=== PATIENT | male | born 1970 | race Caucasian/White ===

== ENCOUNTER 2016-12-07 07:52 | Emergency (ER) | payer BC ==
--- NOTE | 2016-12-07 08:08 | UC ---
Ear Complaint HPI - HPI Summary HPI Summary: complaint of left ear pain that started on 12/07/16 now his ear feels plugged can't hear well out of left ear has been using qtips to clean out his ear denies nasal congestion sore throat, fever cough headache tried to use homepathy remedy and warm cloth with relief - History of Current Complaint Hx Obtained From: Patient <Lizzy Sánchez - Last Filed: 12/07/16 08:18> <Mattie Vasques - Last Filed: 12/07/16 11:08> - History of Current Complaint Chief Complaint: UCEar Stated Complaint: EARACHE Time Seen by Provider: 12/07/16 08:02 - Allergies/Home Medications Allergies/Adverse Reactions: Allergies Allergy/AdvReac Type Severity Reaction Status Date / Time animal hair Allergy Severe Hives Uncoded 12/07/16 07:55 Home Medications: Home Medications Ibuprofen TAB* [Advil TAB*] 2 tab PO PRN 12/07/16 [History] PMH/Surg Hx/FS Hx/Imm Hx Previously Healthy: Yes - Surgical History Surgical History: Yes Surgery Procedure, Year, and Place: toe surgery - Family History Known Family History: Positive: Cardiac Disease - father, Hypertension - father , Diabetes - Social History Occupation: Employed Full-time Lives: With Family Alcohol Use: Rare Substance Use Type: None Smoking Status (MU): Former Smoker When Did the Patient Quit Smoking/Using Tobacco: quit 5 years ago - Immunization History Most Recent Influenza Vaccination: unknown <Lizzy Sánchez - Last Filed: 12/07/16 08:18> Review of Systems Constitutional: Negative Skin: Negative Eyes: Negative ENT: Ear Ache Respiratory: Negative Cardiovascular: Negative Gastrointestinal: Negative Genitourinary: Negative Motor: Negative Neurovascular: Negative Musculoskeletal: Negative Neurological: Negative Psychological: Negative All Other Systems Reviewed And Are Negative: Yes <Lizzy Sánhcez - Last Filed: 12/07/16 08:18> Physical Exam Triage Information Reviewed: Yes Appearance: No Pain Distress, Well-Nourished Vital Signs: Initial Vital Signs Temp 98.3 F 12/07/16 07:55 Pulse 62 12/07/16 07:55 Resp 16 12/07/16 07:55 BP 129/86 12/07/16 07:55 Pulse Ox 99 12/07/16 07:55 Vital Signs Reviewed: Yes Eyes: Positive: Conjunctiva Clear ENT: Positive: Pharynx normal, TMs normal, Other: - left ear canal edematous and erythematous. Negative: Nasal congestion Neck: Positive: No Lymphadenopathy Respiratory: Positive: Lungs clear, Normal breath sounds, No respiratory distress, No accessory muscle use Cardiovascular: Positive: RRR, No Murmur, Pulses Normal, Brisk Capillary Refill Musculoskeletal: Positive: No Edema Neurological: Positive: Alert Psychological Exam: Normal Skin Exam: Normal <Lizzy Sánchez - Last Filed: 12/07/16 08:18> Vital Signs: Initial Vital Signs Temp 98.3 F 12/07/16 07:55 Pulse 62 12/07/16 07:55 Resp 16 12/07/16 07:55 BP 129/86 12/07/16 07:55 Pulse Ox 99 12/07/16 07:55 <Mattie Vasques - Last Filed: 12/07/16 11:08> Ear Complaint Course/Dx - Differential Dx/Diagnosis Differential Diagnosis/HQI/PQRI: Cerumen Impaction, Otitis Externa, Otitis Media Provider Diagnoses: left otitis externa <Lizzy Sánchez - Last Filed: 12/07/16 08:18> Discharge <Lizzy Sánchez - Last Filed: 12/07/16 08:18> <Mattie Vasques - Last Filed: 12/07/16 11:08> - Discharge Plan Condition: Stable Disposition: HOME Prescriptions: Ciproflox/Dexameth OTIC.SUSP* [Ciprodex OTIC.SUSP*] 4 drop .SEE ORDER BID #1 btl Patient Education Materials: Otitis Externa (ED) Referrals: Riley Dale MD [Medical Doctor] - Additional Instructions: Please start antibiotic eardrops as directed Increase fluids and rest Take acetaminophen or ibuprofen for fever or pain Please review your discharge instructions. If your symptoms do not improve please call your primary care provider or return to urgent care Attestation Statement User Type: Provider - I was available for consult. This patient was seen by the ANNAMARIA. The patient was not presented to, seen by, or examined by me. -Kalpesh <Mattie Vasques - Last Filed: 12/07/16 11:08>
[2016-12-07 08:30] VITALS: BP 129/86
== END 2016-12-07 08:20 | disposition home or self-care (01) ==
LOC: UCEAST 07:52
DX: H60.92 Unspecified otitis externa, left ear (principal); Z87.891 Personal history of nicotine dependence
CPT/HCPCS: 99212; G0463

== ENCOUNTER 2019-04-13 20:37 | Emergency (ER) | payer BC ==
[2019-04-13 20:44] VITALS: BP 135/88
--- NOTE | 2019-04-13 20:54 | UC ---
Respiratory Complaint HPI - HPI Summary HPI Summary: 48 yo male presents with sinus symptoms. He tells me that over the last week he has intermittent sinus congestion, runny nose, post nasal drip, and b/l ear popping and fullness. Last night he felt his sinus congestion worsen. This morning he sat up in bed and felt that the room was spinning - this made him nauseous and he vomited x1. Resolved within 30minutes. Has been eating and drinking well since that time. No more episodes of vomiting. Today he sinus congestion has felt much worse and his right ear has been aching. He denies headache, current dizziness, vision changes, sore throat, cough, SOB, chest pain , abdominal pain, n/v. - History of Current Complaint Chief Complaint: UCGeneralIllness Stated Complaint: sinus congestion Time Seen by Provider: 04/13/19 20:53 Hx Obtained From: Patient Onset/Duration: Gradual Onset Severity Initially: Moderate Severity Currently: Moderate Pain Intensity: 6 Pain Scale Used: 0-10 Numeric - Allergies/Home Medications Allergies/Adverse Reactions: Allergies Allergy/AdvReac Type Severity Reaction Status Date / Time animal hair Allergy Severe Hives Uncoded 04/13/19 20:44 Home Medications: Home Medications Aspirin/Acetaminophen/Caffeine [Excedrin Extra Strength Caplet] 2 each PO ONCE PRN 04/13/19 [History Confirmed 04/13/19] PMH/Surg Hx/FS Hx/Imm Hx - Additional Past Medical History Additional PMH: None - Surgical History Surgical History: Yes Surgery Procedure, Year, and Place: toe surgery - Family History Known Family History: Positive: Cardiac Disease - father, Hypertension - father , Diabetes - Social History Lives: With Family Alcohol Use: Rare Substance Use Type: None Smoking Status (MU): Former Smoker When Did the Patient Quit Smoking/Using Tobacco: quit 5 years ago - Immunization History Most Recent Influenza Vaccination: unknown Review of Systems All Other Systems Reviewed And Are Negative: No Constitutional: Positive: Negative Skin: Positive: Negative Eyes: Positive: Negative ENT: Positive: Nasal Discharge, Sinus Congestion, Sinus Pain/Tenderness Respiratory: Positive: Negative Cardiovascular: Positive: Negative Gastrointestinal: Positive: Nausea - resolved Neurovascular: Positive: Negative Neurological: Positive: Negative Psychological: Positive: Negative Physical Exam - Summary Physical Exam Summary: GENERAL: NAD. WDWN. No pain distress. SKIN: No rashes, sores, lesions, or open wounds. HEENT: Head: AT/NC Eyes: EOM intact. Conjunctiva clear without inflammation or discharge. Ears: Hearing grossly normal. TMs intact, no bulging, erythema, or edema. Nose: Nasal mucosa mildly swollen and erythematous without discharge. TTP maxillary > frontal sinus. Positive post nasal drip Throat: Posterior oropharynx without exudates, erythema, or tonsillar enlargement. Uvula midline. NECK: Supple. Nontender. No lymphadenopathy. CHEST: CTAB. No r/r/w. No accessory muscle use. Breathing comfortably and in no distress. CV: RRR. Pulses intact. NEURO: A&Ox3. CN: II: Peripheral block intact. Vision normal. III, IV, : EOMI. No nystagmus. PERRLA. V: Sensations intact and symmetric. Opens mouth and clenches teeth. VII: No facial asymmetry. Forehead wrinkles. Grins, shuts eyes, frowns, puffs cheeks. VIII: Hearing intact to finger rub. IX, X: Swallows and coughs. Uvula midline. XI: Shrugs shoulders. Turns head against resistance. XII : No tongue deviation [id number] are intact. Gait with normal base. Romberg : maintains balance, no pronator drift. Normal speech. No facial drooping. PSYCH: Age appropriate behavior. Triage Information Reviewed: Yes Vital Signs: Initial Vital Signs Temp 97.6 F 04/13/19 20:39 Pulse 78 04/13/19 20:39 Resp 16 04/13/19 20:39 BP 135/88 04/13/19 20:39 Pulse Ox 97 04/13/19 20:39 Vital Signs Reviewed: Yes Respiratory Course/Dx - Course Course Of Treatment: Sinusitis Neuro exam WNL. BP slightly elevated, but acceptable. Vertigo resolved and seems positional - suspect vertigo due to eustacian tube dysfunction. - Differential Dx/Diagnosis Provider Diagnosis: Sinusitis Discharge ED - Sign-Out/Discharge Documenting (check all that apply): Patient Departure All imaging exams completed and their final reports reviewed: No Studies - Discharge Plan Condition: Stable Disposition: HOME Prescriptions: Amoxicillin PO (*) [Amoxicillin 875 MG (*)] 875 mg PO BID #14 tab Fluticasone NASAL SPRAY 50MCG* [Flonase NASAL SPRAY 50MCG*] 2 spray BOTH NARES DAILY #1 btl Patient Education Materials: Sinusitis (ED) Referrals: No Primary Care Phys,NOPCP [Primary Care Provider] - Additional Instructions: If you develop a fever, shortness of breath, chest pain, new or worsening symptoms - please call your PCP or go to the ED immediately. - Billing Disposition and Condition Condition: STABLE Disposition: Home
[2019-04-13] MEDS ORDERED: Amoxicillin PO (*) 500 MG CAP PO ONE (20:59)
== END 2019-04-13 21:08 | disposition home or self-care (01) ==
LOC: UCEAST 20:37
DX: J32.9 Chronic sinusitis, unspecified (principal); H92.01 Otalgia, right ear; Z91.09 Other allergy status, other than to drugs and biological substances; Z87.891 Personal history of nicotine dependence
CPT/HCPCS: 99212; A9270-GY; G0463